=== PATIENT | female | born 1995 | race Caucasian/White ===

== ENCOUNTER 2018-08-04 14:23 | Emergency (ER) | payer BC ==
[~2018-08-04] VITALS: Ht 154.9 cm; Wt 48.5 kg
[2018-08-04] MEDS ORDERED: HYDROCODONE/APAP 5/325MG 1 EACH TABLET PO ONE (17:00)
[2018-08-04] MEDS ORDERED: IV NS 0.9% 500 ML BAG IV ONE (17:00)
[2018-08-04] MEDS ORDERED: DEXAMETHASONE SOD PHOSPHATE 10 MG/ML VIAL IV ONE (17:00)
[2018-08-04 17:10] LABS: CALCIUM, SERUM 8.6 mg/dL (8.5-10.1); CREATININE 0.8 mg/dL (0.6-1.3); POTASSIUM 3.5 mmol/L (3.5-5.1)
[2018-08-04] MEDS ORDERED: DEXAMETHASONE SOD PHOSPHATE 10 MG/ML VIAL ONE (17:18)
[2018-08-04 17:20] LABS: BASOPHILS % (AUTO) 0.4 % (0.0-2.0); EOSINOPHILS % (AUTO) 1.2 % (0.0-6.0); HEMATOCRIT 37 % (33-45); HEMOGLOBIN 12.2 g/dL (11.5-14.8); LYMPHOCYTES # (AUTO) 2.1 /CMM (0.8-4.8); LYMPHOCYTES % (AUTO) 35.8 % (20.0-44.0); MEAN CORPUSCULAR HGB CONC 33 g/dl (31.0-36.0); MEAN CORPUSCULAR VOLUME 88 fL (82-100); MONOCYTES # (AUTO) 0.4 /CMM (0.1-1.30); NEUTROPHILS # (AUTO) 3.4 /CMM (1.8-8.9); NEUTROPHILS % (AUTO) 56.6 % (43.0-81.0); PLATELET COUNT (AUTO) 294 /CMM (150-450); RDW COEFFICIENT OF VARIATION 12.8 (11.5-15.0); RED BLOOD CELL COUNT(AUTO) 4.21 MIL/uL (4.0-5.2); WHITE BLOOD COUNT (AUTO) 5.9 K/uL (4.3-11.0)
[2018-08-04] MEDS ORDERED: MORPHINE SULFATE INJ 4 MG/ML DISP.SYRIN IV ONE (17:30)
[2018-08-04] MEDS ORDERED: MORPHINE SULFATE INJ 4 MG/ML DISP.SYRIN ONE (17:32)
--- NOTE | 2018-08-04 17:34 | NUR ---
PT TO CT VIA [facility].
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
[2018-08-04 19:37] VITALS: BP 118/74
== END 2018-08-04 19:20 | disposition home or self-care (01) ==
LOC: ER 14:27
DX: S16.1XXA Strain of muscle, fascia and tendon at neck level, initial encounter (principal); M54.12 Radiculopathy, cervical region; G54.0 Brachial plexus disorders; R42 Dizziness and giddiness; Z98.890 Other specified postprocedural states; V43.62XA Car passenger injured in collision with other type car in traffic accident, initial encounter; Y93.89 Activity, other specified; Y92.89 Other specified places as the place of occurrence of the external cause; Y99.8 Other external cause status
CPT/HCPCS: 36415; 70450; 71045; 72125; 80048; 85025; 96374; 96375; 99285; A4606; J1100; J2270; J7040; Z7610

== ENCOUNTER 2025-05-31 09:52 | Emergency (ER) | payer BC ==
[~2025-05-31] VITALS: Ht 180.3 cm; Wt 54.0 kg
[2025-05-31] MEDS ORDERED: ACETAMINOPHEN ES 500 MG TABLET ONE (10:41)
[2025-05-31] MEDS ORDERED: IBUPROFEN 600 MG TABLET ONE (10:42)
[2025-05-31] MEDS: ACETAMINOPHEN ES 500 MG TABLET PO ONE (11:14)
[2025-05-31] MEDS: IBUPROFEN 600 MG TABLET PO ONE (11:15)
[2025-05-31] MEDS ORDERED: MORPHINE SULFATE INJ 2 MG/ML DISP.SYRIN ONE (12:28)
[2025-05-31] MEDS: MORPHINE SULFATE INJ 2 MG/ML DISP.SYRIN IM ONE (12:34)
[2025-05-31 12:54] VITALS: BP 128/77; TEMP 98.4; O2SAT 99
== END 2025-05-31 12:55 | disposition home or self-care (01) ==
LOC: ER 10:06
DX: S80.12XA Contusion of left lower leg, initial encounter (principal); S20.219A Contusion of unspecified front wall of thorax, initial encounter; R06.02 Shortness of breath; R51.9 Headache, unspecified; Z87.39 Personal history of other diseases of the musculoskeletal system and connective tissue; V43.52XA Car driver injured in collision with other type car in traffic accident, initial encounter; Y93.89 Activity, other specified; Y92.488 Other paved roadways as the place of occurrence of the external cause; Y99.8 Other external cause status
CPT/HCPCS: 99285; 71250; 96372; 93005; 70450; J2270

== ENCOUNTER 2025-08-21 22:23 | Emergency (ER) | payer BC ==
[~2025-08-21] VITALS: Ht 180.3 cm; Wt 52.2 kg
[2025-08-21 22:38] VITALS: BP 135/96; TEMP 98.8; O2SAT 100
== END 2025-08-21 23:00 | disposition home or self-care (01) ==
LOC: ER 22:32
DX: T39.1X1A Poisoning by 4-Aminophenol derivatives, accidental (unintentional), initial encounter (principal); Y92.89 Other specified places as the place of occurrence of the external cause

== ENCOUNTER 2025-10-02 23:14 | Emergency (ER) | payer BC ==
[~2025-10-02] VITALS: Ht 180.3 cm; Wt 54.4 kg
[2025-10-03 00:43] VITALS: BP 141/101; TEMP 98.8; O2SAT 99
[2025-10-03] MEDS ORDERED: LIDOCAINE 1% INJ 50 ML MDV IJ ONE (00:55)
== END 2025-10-03 01:27 | disposition home or self-care (01) ==
LOC: ER 23:18
DX: S61.412A Laceration without foreign body of left hand, initial encounter (principal); W26.9XXA Contact with unspecified sharp object(s), initial encounter; Y93.89 Activity, other specified; Y92.89 Other specified places as the place of occurrence of the external cause; Y99.8 Other external cause status
CPT/HCPCS: 12001; 99282; J3490